=== PATIENT | female | born 1970 | race Caucasian/White ===

== ENCOUNTER 2021-11-08 10:58 | Emergency (ER) | payer OTHER, SELFPAY ==
--- NOTE | ~2021-11-08 | XR_ITS ---
EXAMINATION: XR KNEE, RIGHT CLINICAL INFORMATION: Fall. Pain. COMPARISON: None TECHNIQUE: Four views of the right knee. FINDINGS: Bones and soft tissues are normal. No fracture or joint effusion. Alignment is anatomic. Joint spaces are well maintained. No abnormal soft tissue calcification. XR/XR knee RT 4V IMPRESSION: Normal right knee.
[2021-11-08 11:18] VITALS: BP 185/105; PULSE 90; RESP 19; TEMP 36.6; O2SAT 98; BMI 39.0
--- NOTE | 2021-11-08 12:54 | ED_ITS ---
HPI - Extremity Injury (Lower) General Chief Complaint: Extremity Injury, Lower Stated Complaint: fall r knee and head inj at work Time Seen by Provider: 11/08/21 12:54 Source: patient Mode of arrival: wheelchair Limitations: no limitations History of Present Illness HPI Narrative: Patient presents emergency department for evaluation of right knee pain after a mechanical trip and fall at work. She reports landing onto her buttock and hearing a loud pop with sudden pain to the left knee. Pain is localized to the medial knee, with swelling. Denies numbness or tingling to the leg, pain or inability to move the ankle or hip. Pain is a 2/10 at rest, 8/10 with movement or weight-bearing. She was able to go to the bathroom and minimally weightbear in the right, is able to bend the right knee but is hesitant due to pain. She states that she did strike the back of her head, but had no loss of consciousness, is not on any anticoagulants, no headache, no vision changes, no dizziness or lightheadedness, no neck pain. MD complaint: knee injury Onset (ago): hour(s) Injury: Right: knee Place: work Severity scale (1-10): 2 Relieving factors: cold therapy Exacerbating factors: weight bearing and movement Context: fall Associated symptoms: snap/pop sensation Other symptoms: none Treatments prior to arrival: cold therapy Related Data Allergies Allergy/AdvReac Type Severity Reaction Status Date / Time codeine Allergy Unknown Unknown Verified 11/08/21 13:48 nitrofurantoin Allergy Unknown Unknown Verified 11/08/21 13:48 [From Macrobid] Review of Systems Review of Systems: Musculoskeletal: Positive right knee pain Yes all other systems are reviewed and are negative [facility] Past Medical History Attestation statement: The following information was validated with the patient. Source: old records reviewed Social History Social History Advance Directives: No Advance Directives Information Provided: No Physical Exam Vital Signs: Vital Signs: Last Vital Signs Temp 98 F 11/08/21 11:18 Pulse 80 11/08/21 13:52 Resp 18 11/08/21 13:52 BP 173/88 H 11/08/21 13:52 Pulse Ox 97 11/08/21 13:52 O2 Del Method 11/08/21 13:52 BMI result Body Mass Index 39.0 Vital signs have been reviewed and appeared to be correct. Hypertensive Heart rate normal.? Respiration rate normal. Temperature normal.? Oxygen saturation normal. Appearance: Alert.?Oriented to person, place and time. No acute distress.?Normal affect. Eyes: Pupils equal, round and reactive to light.? ENT: Pharynx normal.?? Neck: Normal inspection.? Neck supple.?? CVS: Heart sounds normal. Normal heart rate and rhythm.? Pulses normal.?? Respiratory: No respiratory distress.? Lung sounds clear to auscultation bilaterally?? Abdomen: Soft and non-tender. Skin: Skin warm and dry.? Normal skin color.? ?? Extremities: No lower extremity edema.? No calf ttp. Localized swelling to right knee, tenderness to palpation along the medial aspect of the knee, anterior drawer test negative, posterior drawer test negative, Varus stress test negative, valgus stress test positive, Yvette test positive.. 2+ DP/PT pulse bilaterally. Neuro: Moves all extremities spontaneously. Sensation intact bilaterally. CN II- XII intact. No focal neuro deficits. Ambulates with antalgic gait Course Course Course Narrative: Patient is a 51-year-old female presenting for evaluation of traumatic right knee pain. XR reveals no acute fracture or dislocation. Extremities neurovascularly intact distally. valgus stress test and Yvette test is positive, advised patient unable to completely exclude ligamentous or meniscus injury, as x-ray imaging is not a preferred the test for this. Discussed rest, ice, compression, elevation, use of knee immobilizer and crutches, weight- bearing as tolerated, naproxen for pain, outpatient follow-up with Orthopedics for further evaluation. Patient verbalized understanding, and she was discharged home in stable condition. Discussed with patient hypertensive readings today, she states that she has an appointment in 5 days with her primary care provider, she is not currently prescribed any antihypertensives or has diagnosed hypertension, she states she will bring this up with her primary care doctor, we discussed reasons that she should return to the emergency department such as confusion, persistent headache, dizziness lightheadedness, neck pain, chest pain, palpitations or shortness of breath, difficulty breathing. MDM - Extremity Injury (Lower) Medical Records Attestation: I reviewed the patient's medical records. Lab Data Attestation: I reviewed the patient's lab results. Imaging Data knee XR: Radiologist's impression: FINDINGS: Bones and soft tissues are normal. No fracture or joint effusion. Alignment is anatomic. Joint spaces are well maintained. No abnormal soft tissue calcification.? XR/XR knee RT 4V IMPRESSION: Normal right knee. Discharge Plan Discharge Clinical Impression: Knee sprain, Elevated blood pressure reading Patient Disposition: Home, Self-Care Instructions: Knee Sprain (ED), Crutch Instructions (ED), R.I.C.E. Treatment (ED) Additional Instructions: Your x-ray does not reveal any fracture dislocation. You can take ibuprofen 200 mg, 3 tablets (600mg) every 6-8 hours as needed for pain, in addition to Tylenol 500 mg, 2 tablets (1,000mg) every 4-6 hours as needed for pain, but not to exceed 3 doses daily (3,000mg).? Use the knee immobilizer any time while walking, and crutches. You may put weight on the knee as tolerated. Please contact orthopedic office to schedule follow-up visit or re-evaluation. Return to emergency department for any new or worsening symptoms or concerns. As we discussed, your blood pressure was elevated while in the emergency department, please follow-up with your primary care provider on Saturday as scheduled, and discuss your blood pressure. Referrals: Darius Woods PA-C [Physician [employer]] - (Traumatic knee pain, work injury) Stand Alone Forms: Work/School Release Interventions: ED Discharge Assessment Last Done: 11/08/21 14:23 Discharge Date/Time: 11/08/21 14:25
[2021-11-08 13:52] VITALS: BP 173/88; PULSE 80; RESP 18; O2SAT 97
== END 2021-11-08 14:25 | disposition home or self-care (01) ==
PROVIDERS: Emergency Provider Emergency Medicine; PCP Family Medicine
DX: S83.91XA Sprain of unspecified site of right knee, initial encounter (principal); R03.0 Elevated blood-pressure reading, without diagnosis of hypertension; W01.0XXA Fall on same level from slipping, tripping and stumbling without subsequent striking against object, initial encounter; Y93.9 Activity, unspecified; Y92.9 Unspecified place or not applicable; Y99.0 Civilian activity done for income or pay
CPT/HCPCS: 73564; 99283